=== PATIENT | female | born 1985 | race Caucasian/White ===

== ENCOUNTER 2024-12-17 18:42 | Emergency (ER) | payer OTHER, SELFPAY ==
[2024-12-17 18:48] VITALS: BP 133/96
[2024-12-17 19:39] LABS: ALT (SGPT) 19 U/L (0-35); AST (SGOT) 17 U/L (14-36); Albumin 4.1 g/dl (3.5-5.0); Alkaline Phosphatase 79 U/L (38-126); Blood Urea Nitrogen 10 mg/dl (7-17); Calcium 9.3 mg/dl (8.4-10.2); Carbon Dioxide 29 mmol/L (22-30); Chloride 102 mmol/L (98-107); Glucose 92 mg/dl (70-99); Potassium 4.3 mmol/L (3.5-5.1); Sodium 138 mmol/L (135-145); Total Protein 7.6 g/dl (6.3-8.2); eGFR > 60.00
[2024-12-17 19:48] LABS: Troponin I < 0.012 ng/ml
--- NOTE | 2024-12-17 21:18 | ED.GENMED ---
History of Present Illness
General
Chief Complaint: Chest Pain
Time Seen by Provider: 12/17/24 20:42
History of Present Illness
History of Present Illness:
39-year-old female with history of anxiety, depression, PTSD presenting to the emergency department for concern of elevated blood pressure and chest discomfort. Patient reports about 5 days ago, she had her blood pressure checked and was told that
it was elevated. Earlier this evening, she had an episode of chest pressure, with tingling to her upper extremities. She called her primary care doctor who advised that she come to the hospital. She denies any known history of high blood pressure
or cardiac issues. She denies any difficulty breathing. Does note some family history of cardiac disease. Notes that symptoms have improved since onset. Does admit to a lot of present stress, and is unsure if that is contributing to her
symptoms. Denies additional acute medical complaints
Past History
Past History
ED Past Medical History: Asthma, Psychiatric (Anxiety, Depression. PTSD) and Other (Migraines, PNA, UTI, Stress incont, Gastroporesis, PCOS, Anemia, ADHD)
ED Past Surgical History: None, Cholecystectomy and Orthopedic (Spinal surgery)
Social History
Tobacco: Non-smoker
Alcohol: Occasional
Drug: None
Personal: Single
Living: with family
Employment: Not employed
Family History
Family History: Other (Father with a leg infection)
Phy Exam
Physical Exam
Physical Exam:
General: Well-appearing, no clinical signs of dehydration, nontoxic and in no acute distress
HEENT: protecting airway
Neck: appears supple
CV: Normal heart rate, regular rhythm
Resp: No accessory muscle use, no increased work of breathing, lungs clear to auscultation bilaterally
Abd: Soft and non-distended, no tenderness to palpation
Extremities: No deformities, no swelling
Neuro: alert, no focal neurologic deficit
: deferred
Rectal: deferred
Psych: Normal affect
Skin: Intact
Scores
Heart Score for Chest Pain Patients
STEMI patient?: No
History: Slightly or Non-Suspicious
ECG: Normal
Age: </= 45 years
Risk Factors: 1 or 2 Risk Factors
Troponin: </= Normal Limit
Heart Score for Chest Pain Patients: 1
Heart Score Risk: 2.5% MACE over next 6 weeks
Course
Orders/Labs/Results
Orders:
Orders
12/17/24 18:43
Electrocardiogram (*1) Urgent
Reason for Study: Chest Pain
EKG- Treatment ONCE
12/17/24 18:52
CBC/With Diff [Complete Blood Count/With Diff] Urgent
12/17/24 19:02
CMP [Comprehensive Metabolic Panel] Urgent
Troponin I Urgent
12/17/24 19:02
Vital Signs
Initial and Last Documented VS:
Initial Vital Signs
Temp Pulse Resp BP Pulse Ox
98.7 F 81 15 133/96 99
12/17/24 18:48 12/17/24 18:48 12/17/24 18:48 12/17/24 18:48 12/17/24 18:48
Last Documented Vital Signs
Temp Pulse Resp BP Pulse Ox
98.7 F 81 15 133/96 99
12/17/24 18:48 12/17/24 18:48 12/17/24 18:48 12/17/24 18:48 12/17/24 21:22
MDM/Problems Addressed
MDM/Problems Addressed:
39-year-old female with history of anxiety, depression, PTSD presenting for chest pressure concern for high blood pressure. Vital signs on arrival are normal, normal blood pressure.
On exam, patient is resting comfortably, no acute distress or discomfort. Unremarkable cardiac and pulmonary exam. EKG obtained on arrival, nonischemic. Without present concern for ACS. Labs obtained prior to my assessment, undetectable
troponin. Patient low risk by heart score at this time. No concern for PE. Do suspect possible stress component to symptoms. Patient was concerned regarding her blood pressure, which is normal in the emergency department. Without indication for
acute treatment. At this time, feel the patient is stable for discharge with close outpatient cardiology follow-up. Return precautions discussed and patient verbalized understanding.
*Pulse Oximetry
SaO2: 99
Oxygen Mode of Delivery: Room air
Patient hypoxic: no
*EKG
Interpreted by ED Provider?: Yes
EKG Intrepretation Date: 12/17/24
EKG Intrepretation Time: 21:21
Interpretation: normal
Comparison EKG: no changes
Heart Rate: 76
Rate: normal
Rhythm: sinus
[place]: normal axis
Interval: normal interval
QRS Pattern: normal QRS
Ischemia: no ischemia
*Critical Care Note
Total Time (30-74mins, 75-104mins- exclusive of procedures): Not Applicable
ED Attending Note
-
Portions of this chart may have been created with voice recognition software.� Occasional wrong word or��sound alike� substitutions may have occurred due to the inherent limitations of voice recognition software.
Discharge Plan
Departure
Patient with high blood pressure during this ER visit?: No
Condition: Good
Discharge Problem:
Chest pain
Instructions: Chest pain (DC)
Prescriptions:
No Action
prochlorperazine maleate 10 MG tablet
10 mg PO Q8HPRN PRN (Reason: nausea ) Qty: 12 0RF
acetazolamide 125 mg Tablet
125 mg PO BID
cyclobenzaprine 10 mg Tablet
10 mg PO TID PRN (Reason: pain )
bupropion HCl 100 mg Tablet
50 mg PO DAILY AT 0700
esomeprazole magnesium [Nexium] 40 mg Capsule,Delayed Release(Dr/Ec)
40 mg PO DAILY
ferrous sulfate 300 mg (60 mg iron)/5 mL Liquid
300 mg PO DAILY
folic acid 1 mg Tablet
1 mg PO DAILY
albuterol 90 mcg/actuation Aerosol
1 mcg INHALATION PRN PRN (Reason: cough sob )
famotidine 40 mg/5 mL (8 mg/mL) Suspension
20 mg PO HS
magnesium Tablet
1 tab PO DAILY PRN (Reason: headache )
melatonin 10 mg Tablet
10 mg PO HS PRN (Reason: sleep )
Linzess 72 mcg Capsule
72 mcg PO DAILY
riboflavin (vitamin B2)
1 tab PO DAILY
gabapentin 600 mg Tablet
1,200 mg PO TID
hydroxyzine HCl 50 mg Tablet
50 mg PO TID PRN (Reason: anxiety)
oxycodone 5 mg tablet
5 mg PO Q4H PRN (Reason: severe pain) Qty: 10 0RF
penicillin V potassium 500 mg tablet
500 mg PO QID Qty: 39 0RF
Referrals:
NONE,* [Family Provider, Internal Medicine]
Niall Tang, [Active, Cardiology]
Activity Restrictions/Additional Instructions:
You were seen in the emergency department for chest pain
You were found to have reassuring laboratory analysis, vital signs, EKG. If symptoms persist, we recommend that you follow-up with a pigskin trimmer.
Please follow-up closely with your primary care physician.
Return to the emergency department for any worsening of your symptoms, or any development of chest pain, difficulty breathing, abdominal pain with persistent vomiting and inability to tolerate food or liquid by mouth (concern for dehydration),
weakness, headache or confusion, fever greater than 100.4, or any additional symptoms that are concerning to you.
Thank you for choosing [facility].
Interventions
Interventions:
*Risk Screen - Suicide Last Done: 12/17/24 18:48
*General Assessment Last Done: 12/17/24 18:48
*Neglect/Abuse Screening Last Done: 12/17/24 18:48
*ED- Fall Risk Assessment Last Done: 12/17/24 21:21
*ED COVID-19 Vaccine History Last Done: 12/17/24 18:48
*ED Influenza Vaccine History Last Done: 12/17/24 18:48
Discharge Date and Time
Print Language: [id number]
[2024-12-17 21:21] VITALS: BMI 54.1
[2024-12-17 21:39] LABS: Hematocrit 40.3 % (37.0-47.0); Hemoglobin 12.6 g/dL (12.0-16.0); Mean Corp Hgb Conc. 31.3 g/dL (33.0-37.0); Mean Corpuscular Volume 82.2 fL (81.0-99.0); Nucleated Red Blood Cells % 0 %; Platelet Count 268 10^3/uL (130-400); Red Cell Dist. Width 14.6 % (11.5-14.5)
[2024-12-17 21:51] VITALS: BP 127/82
== END 2024-12-17 21:53 | disposition home or self-care (01) ==
LOC: EMR 18:42
PROVIDERS: Emergency Medicine; EMERGENCY PHYSICIAN Student in an Organized Health Care Education/Training Program; FAMILY PHYSICIAN Family Medicine
DX: R07.9 Chest pain, unspecified (principal); J45.909 Unspecified asthma, uncomplicated; Z90.49 Acquired absence of other specified parts of digestive tract
CPT/HCPCS: 99284; 80053; 84484; 85025; 93005